=== PATIENT | male | born 1990 | race Caucasian/White ===

== ENCOUNTER 2023-10-20 21:10 | Emergency (ER) | payer BC ==
[~2023-10-20] VITALS: Ht 177.8 cm; Wt 99.8 kg
[2023-10-20 21:30] VITALS: BP_SYST 147; PULSE 107; RESP 20; TEMP 97.8; O2SAT 99
[2023-10-20] MEDS ORDERED: IBUP-1969 PO (22:55)
[2023-10-20 23:11] VITALS: BP_SYST 137; PULSE 90; RESP 18; TEMP 96.5; O2SAT 99
== END 2023-10-20 23:10 | disposition home or self-care (01) ==
LOC: SED 21:10
DX: S92.321A Displaced fracture of second metatarsal bone, right foot, initial encounter for closed fracture (principal); Z79.899 Other long term (current) drug therapy; W22.8XXA Striking against or struck by other objects, initial encounter; Y93.89 Activity, other specified; Y92.89 Other specified places as the place of occurrence of the external cause; Y99.8 Other external cause status
CPT/HCPCS: 99284